=== PATIENT | female | born 1980 ===

== ENCOUNTER 2016-06-24 17:12 | Emergency (ER) | payer OTHER ==
[2016-06-24 17:12] VITALS: BMI 33.6
[2016-06-24] MEDS ORDERED: Sodium Chloride 0.9% 1,000 ML IV STA (18:01)
[2016-06-24 18:43] LABS: BASO % 0.3 % (0.0-2.0); EOS # 0.2 K/uL (0.0-0.7); EOS % 1.3 % (0.0-4.0); HEMATOCRIT 44.7 % (34.0-47.0); LYMPH # 1.6 K/uL (1.0-4.3); LYMPH % 13.3 % (20.0-40.0); MEAN CELL VOLUME 90.1 fl (81.0-99.0); MEAN CORPUSCULAR HEMOGLOBIN 30.3 pg (27.0-31.0); MEAN CORPUSCULAR HGB CONC 33.6 g/dL (33.0-37.0); MEAN PLATELET VOLUME 9.9 fl (7.2-11.7); MONO # 0.7 K/uL (0.0-0.8); MONO % 5.6 % (0.0-10.0); NEUT # 9.4 K/uL (1.8-7.0); NEUT % 79.5 % (50.0-75.0); NRBC % 0.1 % (0.0-0.0); RED CELL DISTRIBUTION WIDTH 13.5 % (11.5-14.5); WHITE BLOOD COUNT 11.8 K/uL (4.8-10.8)
[2016-06-24 18:49] LABS: ALB/GLOB RATIO 1.1 (1.0-2.1); ALKALINE PHOSPHATASE 104 U/L (38-126); ALT/SGPT 44 U/L (9-52); AST/SGOT 30 U/L (14-36); BILIRUBIN,TOTAL 0.4 mg/dl (0.2-1.3); BLOOD UREA NITROGEN 6 mg/dl (7-17); CALCIUM 10.2 mg/dL (8.4-10.2); CARBON DIOXIDE 16 mmol/L (22-30); CHLORIDE 106 mmol/L (98-107); GFR AFRICAN-AMERICAN > 60; GLUCOSE,RANDOM 97 mg/dL (65-105); POTASSIUM 3.9 MMOL/L (3.6-5.0); SODIUM 136 mmol/l (132-148); TOTAL PROTEIN 9.2 G/DL (6.3-8.2)
[2016-06-24 19:20] LABS: THYROID STIMULATING HORMONE 1.95 mIU/ML (0.46-4.68)
--- NOTE | 2016-06-24 19:43 | ED PDOC ---
HPI: General Adult Time Seen by Provider: 06/24/16 17:37 Chief Complaint (Nursing): Shortness Of Breath Chief Complaint (Provider): SOB, headache History Per: Patient Additional Complaint(s): Pt. states for the past 3-4 months she's had intermittent palpitations with SOB. Also reports today she had a trigeminal neuralgia attack. Reports headache is localized to the L side of her head and symptoms are exactly the same from previous episodes. Pt. states she's been evaluated in [facility] and is suppose to get a holter monitor but she cannot find a branch office administrator that will accept her insurance. Denies fever, hx of DVT/PE, sudden onset of headache, head injury. Past Medical History Reviewed: Historical Data, Nursing Documentation, Vital Signs Vital Signs: Last Vital Signs Temp 97.7 F 06/24/16 17:26 Pulse 92 H 06/24/16 17:26 Resp 18 06/24/16 17:26 BP 140/95 H 06/24/16 17:26 Pulse Ox 99 06/24/16 17:26 - Medical History PMH: Anxiety, Asthma, HTN, Hypothyroidism, Personality Disorder - Family History Family History: States: No Known Family Hx - Immunization History Hx Tetanus Toxoid Vaccination: No Hx Influenza Vaccination: No Hx Pneumococcal Vaccination: No - Home Medications Home Medications: Ambulatory Orders Medication Instructions Recorded Levothyroxine [Synthroid] 75 mg PO DAILY 05/18/16 - Allergies Allergies/Adverse Reactions: Allergies Allergy/AdvReac Type Severity Reaction Status Date / Time No Known Allergies Allergy Verified 03/17/16 13:20 Review of Systems ROS Statement: Except As Marked, All Systems Reviewed And Found Negative Physical Exam - Reviewed Nursing Documentation Reviewed: Yes Vital Signs Reviewed: Yes - Physical Exam Appears: Positive for: Well, Non-toxic, No Acute Distress Head Exam: Positive for: ATRAUMATIC, NORMAL INSPECTION, NORMOCEPHALIC Skin: Positive for: Normal Color, Warm. Negative for: Rash Eye Exam: Positive for: EOMI, Normal appearance, PERRL ENT: Positive for: Normal ENT Inspection, TM Is/Are (WNL b/l). Negative for: Pharyngeal Erythema, Tonsillar Exudate, Tonsillar Swelling Neck: Positive for: Normal, Painless ROM Cardiovascular/Chest: Positive for: Regular Rate, Rhythm Respiratory: Positive for: CNT, Normal Breath Sounds Gastrointestinal/Abdominal: Positive for: Normal Exam, Bowel Sounds, Soft. Negative for: Tenderness Back: Positive for: Normal Inspection. 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 Negative for: Motor/Sensory Deficits, Aphasia, Facial Droop - Laboratory Results Result Diagrams: 06/24/16 18:30 06/24/16 18:30 - ECG ECG: Positive for: Interpreted By Me ECG Rhythm: Positive for: Sinus Rhythm. Negative for: ST/T Changes Rate: 86 O2 Sat by Pulse Oximetry: 99 - Progress ED Course And Treament: Labs ordered. Reglan 10mg IV ordered. IV NS bolus given. On re-evaluation, pt. reports no relief in headache. Morphine 2mg IV, zofran 4mg IV given. CT head w/o contrast ordered. Disposition - Clinical Impression Clinical Impression: Palpitations, Headache - Patient ED Disposition Is Patient to be Admitted: Transfer of Care (Signed out to Erickson MOONEY pending CT results and final disposition.) - Disposition Disposition Time: 20:00 Condition: STABLE
--- NOTE | 2016-06-24 20:57 | CT ---
EXAM: CT Head Without Intravenous Contrast. CLINICAL HISTORY: 36 years old, female; Pain; Headache; Other: Localized to left side of head TECHNIQUE: Axial computed tomography images of the head/brain without intravenous contrast. This CT exam was performed using one or more of the following dose reduction techniques: automated exposure control, adjustment of the mA and/or kV according to patient size, and/or use of iterative reconstruction technique. Coronal and sagittal reformatted images were created and reviewed. COMPARISON: CT - HEAD W/O CONTRAST 02/10/2016 3:05:59 PM FINDINGS: Brain: No hemorrhage. No significant white matter disease. No edema. Ventricles: No hydrocephalus. Bones: Skull is intact. Sinuses: Partial visualization of paranasal sinus disease. No fluid level visualized. Mastoid air cells: No mastoid effusion. IMPRESSION: No CT evidence of acute intracranial abnormality. Partial visualization of paranasal sinus disease.
--- NOTE | 2016-06-24 21:01 | ED PDOC ---
- Laboratory Results Result Diagrams: 06/24/16 18:30 06/24/16 18:30 - ECG O2 Sat by Pulse Oximetry: 99 - Progress ED Course And Treament: Case endorsed to copywriter from Nick MOONEY pending CT and re-eval EXAM: CT Head Without Intravenous Contrast. CLINICAL HISTORY: 36 years old, female; Pain; Headache; Other: Localized to left side of head TECHNIQUE: Axial computed tomography images of the head/brain without intravenous contrast. This CT exam was performed using one or more of the following dose reduction techniques: automated exposure control, adjustment of the mA and/or kV according to patient size, and/or use of iterative reconstruction technique. Coronal and sagittal reformatted images were created and reviewed. COMPARISON: CT - HEAD W/O CONTRAST 02/10/2016 3:05:59 PM FINDINGS: Brain: No hemorrhage. No significant white matter disease. No edema. Ventricles: No hydrocephalus. Bones: Skull is intact. Sinuses: Partial visualization of paranasal sinus disease. No fluid level visualized. Mastoid air cells: No mastoid effusion. IMPRESSION: No CT evidence of acute intracranial abnormality. Partial visualization of paranasal sinus disease. On re-eval, patient still with frontal headache/pressure. Toradol IV ordered. 22:45 Patient notes improvement of headache but still feels pressure. Patient educated on CT findings, will treat for sinusitis. Augmentin and Tramadol dose given in ED. Patient discharged with rx Augmentin, Flonase, Tramadol. Advised follow up PMD 2-3 days. Return to ED for worsening/concerning symptoms. Disposition - Clinical Impression Clinical Impression: Palpitations, Headache, Sinusitis - POA Present On Arrival: None - Disposition Disposition: Routine/Home Disposition Time: 23:01 Condition: IMPROVED Prescriptions: Amoxicillin/Clavulanate [Augmentin 875 MG-125 MG] 1 tab PO Q12 #13 tab Fluticasone Nasal [Flonase] 2 actuation NS DAILY #1 bottle traMADol [Ultram] 50 mg PO Q6 PRN #10 tab PRN Reason: Pain, Severe (8-10) Instructions: Acute Headache (ED), Sinusitis (ED), Palpitations (ED)
[2016-06-24 22:55] VITALS: PULSE 78
[2016-06-24] MEDS ORDERED: Amoxicillin-Clav 250-125 mg Tab PO ONE (22:55)
[2016-06-24] MEDS ORDERED: Amoxicillin-Clav 875-125 mg Tab PO STA (22:58)
[2016-06-24] MEDS ORDERED: Amoxicillin-Clav 875-125 mg Tab PO ONE (23:05)
[2016-06-24 23:15] VITALS: BP 128/78; RESP 19; TEMP 97.6; O2SAT 98
--- NOTE | 2016-06-25 08:31 | RAD ---
HISTORY: SOB COMPARISON: No prior. TECHNIQUE: Chest PA and lateral FINDINGS: LUNGS: No active pulmonary disease. PLEURA: No significant pleural effusion identified. No pneumothorax apparent. CARDIOVASCULAR: Normal. OSSEOUS STRUCTURES: No significant abnormalities. VISUALIZED UPPER ABDOMEN: Normal. OTHER FINDINGS: None. IMPRESSION: No active disease.
== END 2016-06-24 23:15 | disposition home or self-care (01) ==
LOC: H.ER 17:12
DX: R00.2 Palpitations (principal); J32.9 Chronic sinusitis, unspecified; R51 Headache; J45.909 Unspecified asthma, uncomplicated; I10 Essential (primary) hypertension; R06.02 Shortness of breath

== ENCOUNTER 2016-07-04 12:59 | Emergency (ER) | payer OTHER, SELFPAY ==
[2016-07-04 13:00] VITALS: BMI 33.6
[2016-07-04 13:09] VITALS: BP 133/78; PULSE 84; RESP 20; TEMP 98.4; O2SAT 98
[2016-07-04 14:10] LABS: BASO # 0.1 K/uL (0.0-0.2); BASO % 0.9 % (0.0-2.0); EOS # 0.2 K/uL (0.0-0.7); HEMATOCRIT 42.5 % (34.0-47.0); LYMPH # 1.7 K/uL (1.0-4.3); LYMPH % 17.4 % (20.0-40.0); MEAN CORPUSCULAR HEMOGLOBIN 29.8 pg (27.0-31.0); MEAN CORPUSCULAR HGB CONC 33.5 g/dL (33.0-37.0); MEAN PLATELET VOLUME 9.7 fl (7.2-11.7); MONO # 0.6 K/uL (0.0-0.8); MONO % 5.6 % (0.0-10.0); NEUT # 7.3 K/uL (1.8-7.0); NEUT % 74.1 % (50.0-75.0); NRBC % 0.1 % (0.0-0.0); RED CELL DISTRIBUTION WIDTH 13.6 % (11.5-14.5); WHITE BLOOD COUNT 9.9 K/uL (4.8-10.8)
[2016-07-04 14:20] LABS: ALB/GLOB RATIO 1.2 (1.0-2.1); ALKALINE PHOSPHATASE 99 U/L (38-126); ALT/SGPT 44 U/L (9-52); AST/SGOT 25 U/L (14-36); BILIRUBIN,TOTAL 0.6 mg/dl (0.2-1.3); BLOOD UREA NITROGEN 6 mg/dl (7-17); CALCIUM 9.9 mg/dL (8.4-10.2); CARBON DIOXIDE 17 mmol/L (22-30); CHLORIDE 108 mmol/L (98-107); GFR AFRICAN-AMERICAN > 60; GLUCOSE,RANDOM 86 mg/dL (65-105); LIPASE 52 U/L (23-300); MAGNESIUM 1.8 MG/DL (1.6-2.3); POTASSIUM 4.1 MMOL/L (3.6-5.0); SODIUM 144 mmol/l (132-148); TOTAL PROTEIN 8.1 G/DL (6.3-8.2)
[2016-07-04 14:50] LABS: THYROID STIMULATING HORMONE 0.77 mIU/ML (0.46-4.68)
--- NOTE | 2016-07-04 15:36 | RAD ---
HISTORY: chest pain COMPARISON: No prior. TECHNIQUE: Chest PA and lateral FINDINGS: LUNGS: No active pulmonary disease. PLEURA: No significant pleural effusion identified. No pneumothorax apparent. CARDIOVASCULAR: Normal. OSSEOUS STRUCTURES: No significant abnormalities. VISUALIZED UPPER ABDOMEN: Normal. OTHER FINDINGS: None. IMPRESSION: No active disease.
--- NOTE | 2016-07-04 15:58 | ED PDOC ---
HPI: Chest Pain Time Seen by Provider: 07/04/16 13:24 Chief Complaint (Nursing): Dizziness/Lightheaded Chief Complaint (Provider): Palpitations, chest pain History Per: Patient History/Exam Limitations: no limitations Onset/Duration Of Symptoms: Mins Current Symptoms Are (Timing): Still Present Severity: Moderate Quality: "Pain" Additional Complaint(s): The pt is a 36yo female with PMHx of palpitations, presents to the ED for evaluation of palpitations with associated left chest wall pain. She reports she was out walking and felt her symptoms causing her concern and prompting her visit to the ED. She denies any dizziness, headache, fever, abdominal pain, cough. At present, offers no additional medical complaints. Past Medical History Reviewed: Historical Data, Nursing Documentation, Vital Signs Vital Signs: Last Vital Signs Temp 98.4 F 07/04/16 13:03 Pulse 84 07/04/16 13:03 Resp 20 07/04/16 13:03 BP 133/78 07/04/16 13:03 Pulse Ox 98 07/04/16 17:04 - Medical History PMH: Anxiety, Asthma, HTN, Hypothyroidism, Personality Disorder - Family History Family History: States: Unknown Family Hx - Immunization History Hx Tetanus Toxoid Vaccination: No Hx Influenza Vaccination: No Hx Pneumococcal Vaccination: No - Home Medications Home Medications: Ambulatory Orders Medication Instructions Recorded Levothyroxine [Synthroid] 75 mg PO DAILY 05/18/16 Amoxicillin/Clavulanate [Augmentin 1 tab PO Q12 #13 tab 06/24/16 875 MG-125 MG] Fluticasone Nasal [Flonase] 2 actuation NS DAILY #1 bottle 06/24/16 traMADol [Ultram] 50 mg PO Q8 PRN #10 tab 06/24/16 Cyclobenzaprine [Flexeril] 5 mg PO TID #6 tab 07/04/16 - Allergies Allergies/Adverse Reactions: Allergies Allergy/AdvReac Type Severity Reaction Status Date / Time No Known Allergies Allergy Verified 03/17/16 13:20 Wells Criteria for PE - Wells Criteria for Pulmonary Embolism Clinical Signs and Symptoms of DVT: No P.E is #1 Diagnosis, or Equally Likely: No Heart Rate >100: No Immobilization at least 3 days;Surgery previous 4 weeks: No Previous, objectively diagnosed PE or DVT: No Hemoptysis: No Malignancy w/treatment within 6 months, or palliative: No Total Score: 0 Review of Systems ROS Statement: Except As Marked, All Systems Reviewed And Found Negative Constitutional: Negative for: Fever Cardiovascular: Positive for: Chest Pain, Palpitations Respiratory: Negative for: Cough Gastrointestinal: Negative for: Abdominal Pain Neurological: Negative for: Headache, Dizziness Physical Exam - Reviewed Nursing Documentation Reviewed: Yes Vital Signs Reviewed: Yes - Physical Exam Appears: Positive for: Well, Non-toxic, No Acute Distress Head Exam: Positive for: ATRAUMATIC Skin: Positive for: Normal Color, Warm, DRY Eye Exam: Positive for: EOMI, Normal appearance, PERRL Neck: Positive for: Normal, Supple Cardiovascular/Chest: Positive for: Regular Rate, Rhythm. Negative for: Chest Non Tender (tednerness to left chest wall under axilla. no rash noted.) Respiratory: Negative for: Respiratory Distress Pulses-Dorsalis Pedis (L): 2+ Pulses-Dorsalis Pedis (R): 2+ Gastrointestinal/Abdominal: Positive for: Normal Exam, Soft. Negative for: Tenderness Extremity: Positive for: Normal ROM, Capillary Refill (normal ). Negative for: Tenderness, Calf Tenderness Neurologic/Psych: Positive for: Alert, Oriented, Gait (normal ). Negative for: Motor/Sensory Deficits - Laboratory Results Result Diagrams: 07/04/16 14:00 07/04/16 14:00 - ECG ECG: Positive for: Interpreted By Me, Viewed By Me ECG Rhythm: Positive for: Normal QRS, Normal ST Segment, Sinus Rhythm (83). Negative for: ST/T Changes O2 Sat by Pulse Oximetry: 98 (RA) Pulse Ox Interpretation: Normal Medical Decision Making Medical Decision Making: Time: 1400 Impression: Musculoskeletal pain r/o ACS, lung etiology Plan: -- Flexeril -- Toradol -- Bloodwork --Reassess 1600 Labs reviewed with no acute findings. Negative for DDimer or Troponin. Final diagnosis: Musculoskeletal chest wall pain Pt stable for d/c home. Scribe Attestation: Documented by Vita Carranza acting as a scribe for NOLA Rivera Provider Scribe Attestation: All medical record entries made by the Scribe were at my direction and personally dictated by me. I have reviewed the chart and agree that the record accurately reflects my personal performance of the history, physical exam, medical decision making, and the department course for this patient. I have also personally directed, reviewed, and agree with the discharge instructions and disposition. Disposition - Clinical Impression Clinical Impression: Chest wall pain - Patient ED Disposition Is Patient to be Admitted: No Counseled Patient/Family Regarding: Studies Performed, Diagnosis, Need For Followup - Disposition Disposition: Routine/Home Disposition Time: 16:00 Condition: IMPROVED Additional Instructions: follow up without fail with your doctors return for any new concerns. Prescriptions: Cyclobenzaprine [Flexeril] 5 mg PO TID #6 tab Instructions: Noncardiac Chest Pain (ED), Chest Wall Pain (ED)
== END 2016-07-04 16:48 | disposition home or self-care (01) ==
LOC: H.ER 12:59
DX: R07.9 Chest pain, unspecified (principal)